=== PATIENT | female | born 1980 | race Caucasian/White ===

== ENCOUNTER 2018-11-22 23:33 | Emergency (ER) | payer MEDICAID ==
[~2018-11-22] VITALS: Wt 76.7 kg
[~2018-11-22 23:33] MED LIST: PRENATAL VIT
--- NOTE | 2018-11-23 00:17 | ERD ---
ER Documentation Chief Complaint Chief Complaint AP/ VOMITING X'S 2 DAYS HPI This 38-year-old female presents for evaluation of abdominal pain and vomiting for the last 2 days. Today she states that she felt increased pain, and had an episode of emesis and subsequently had a syncopal episode, she sustained a laceration over her right upper inner lip, she denies neck pain, she she denies being intoxicated. She denies vaginal discharge, she has not had any loose dentition. ROS All systems reviewed and are negative except as per history of present illness. Medications Home Meds Discontinued Reported Medications Vit 05/17/10 Allergies Allergies: Coded Allergies: No Known Allergy (Verified , 05/17/10) PMhx/Soc History of Surgery: No Anesthesia Reaction: No Hx Neurological Disorder: No Hx Respiratory Disorders: No Hx Cardiac Disorders: No Hx Psychiatric Problems: No Hx Miscellaneous Medical Probl: No Hx Alcohol Use: No Hx Substance Use: No Hx Tobacco Use: No Physical Exam Vitals Vital Signs Date Temp Pulse Resp B/P (MAP) Pulse Ox O2 O2 Flow FiO2 Time Delivery Rate 11/23/18 63 16 120/97 100 Room Air 02:00 (105) 11/22/18 97.3 74 18 150/86 99 23:34 (107) Physical Exam Const: No acute distress Head: Hematoma over the right forehead Eyes: Normal Conjunctiva ENT: Normal External Ears, Nose and Mouth, no nasal septal hematoma. There is small superficial abrasion over the right upper side of the mouth, in the inner lip, there is 2 cm transverse laceration, that is not through and through. Neck: Full range of motion. No meningismus. Resp: Clear to auscultation bilaterally Cardio: Regular rate and rhythm, no murmurs Abd: Soft, non tender, non distended. Normal bowel sounds Skin: No petechiae or rashes Back: No midline or flank tenderness Ext: No cyanosis, or edema Neur: Awake and alert Psych: Normal Mood and Affect Result Diagram: 11/23/180 11/23/180 Results 24 hrs Laboratory Tests Test 11/23/18 00:20 11/23/18 00:53 White Blood Count 9.7 10^3/ul Red Blood Count 4.04 10^6/ul Hemoglobin 11.9 g/dl Hematocrit 35.8 % Mean Corpuscular Volume 88.6 fl Mean Corpuscular Hemoglobin 29.5 pg Mean Corpuscular Hemoglobin Concent 33.2 g/dl Red Cell Distribution Width 12.9 % Platelet Count 263 10^3/UL Mean Platelet Volume 10.5 fl Immature Granulocytes % 0.300 % Neutrophils % 76.6 % Lymphocytes % 15.8 % Monocytes % 5.4 % Eosinophils % 1.6 % Basophils % 0.3 % Nucleated Red Blood Cells % 0.0 /100WBC Immature Granulocytes # 0.030 10^3/ul Neutrophils # 7.4 10^3/ul Lymphocytes # 1.5 10^3/ul Monocytes # 0.5 10^3/ul Eosinophils # 0.2 10^3/ul Basophils # 0.0 10^3/ul Nucleated Red Blood Cells # 0.0 10^3/ul Prothrombin Time 11.8 Sec Prothrombin Time Ratio 0.9 INR International Normalized Ratio 0.86 Urine Color COLORLESS Urine Clarity CLEAR Urine pH 7.0 Urine Specific [place] 1.004 Urine Ketones NEGATIVE mg/dL Urine Nitrite NEGATIVE mg/dL Urine Bilirubin NEGATIVE mg/dL Urine Urobilinogen NEGATIVE mg/dL Urine Leukocyte Esterase NEGATIVE Janae/ul Urine Hemoglobin NEGATIVE mg/dL Urine Glucose NEGATIVE mg/dL Urine Total Protein NEGATIVE mg/dl Sodium Level 142 mmol/L Potassium Level 3.9 mmol/L Chloride Level 105 mmol/L Carbon Dioxide Level 26 mmol/L Anion Gap 11 Blood Urea Nitrogen 23 mg/dl Creatinine 0.59 mg/dl Est Glomerular Filtrat Rate mL/min > 60 mL/min Glucose Level 116 mg/dl Calcium Level 9.1 mg/dl Total Bilirubin 0.0 mg/dl Direct Bilirubin 0.00 mg/dl Indirect Bilirubin 0.0 mg/dl Aspartate Amino Transf (AST/SGOT) 43 IU/L Alanine Aminotransferase (ALT/SGPT) 69 IU/L Alkaline Phosphatase 82 IU/L Troponin I < 0.012 ng/ml Total Protein 7.4 g/dl Albumin 4.3 g/dl Globulin 3.10 g/dl Albumin/Globulin Ratio 1.38 Lipase 66 U/L POC Beta HCG, Qualitative NEGATIVE Current Medications Medications Dose Sig/Matthew Start Time Status Last (Trade) Ordered Route PRN Stop Time Admin Dose Reason Admin Diphtheria/ 0.5 ml ONCE ONCE 11/23/18 DC 11/23/18 Tetanus/Acell IM* 00:30 11/23/18 01:58 Pertussis 00:31 (Adacel) Lidocaine 5 ml ONCE ONCE 11/23/18 DC (Xylocaine INFIL 00:30 11/23/18 1% (Mpf)) 00:31 Procedures/MDM This is a 38-year-old female presents for evaluation of syncope and abdominal pain. #Syncope. I suspect her syncopal episode was most likely vasovagal, this is in the setting of having abdominal pain for the last 2 days, her EKG showed normal sinus rhythm, with no evidence of arrhythmia, otherwise she has no cardiac history. Because she fell on her head and had evidence of trauma, CT brain was negative, but did note left nasal fracture, she is nexus negative, no indication for CT imaging of the neck. She has a small laceration of the inner lip, that does not appear to be through and through. She has no evidence of facial fractures, and no loose dentition. #Abdominal pain. She has no peritoneal signs on abdominal exam, labs were overall unremarkable, and CT abdomen pelvis was negative, at this point does not appear to be an emergent or surgical cause for abdominal pain, and she is stable for discharge. EKG: Rate/Rhythm: Normal Sinus Rhythm QRS, ST, T-waves: Q waves noted inferiorly. No changes consistent w/ acute ischemia Impression: No evidence of ischemia or arrhythmia Departure Diagnosis: Primary Impression: Syncope Syncope type: vasovagal syncope Qualified Codes: R55 - Syncope and collapse Additional Impression: Abdominal pain Abdominal location: lower abdomen, unspecified Qualified Codes: R10.30 - Lower abdominal pain, unspecified Condition: Stable NATHALY HERNDON MD Nov 23, 2018 00:17
[2018-11-23] MEDS ORDERED: LIDOCAINE 1% (MPF) 5 ML VIAL INFIL ONE (00:30)
[2018-11-23] MEDS ORDERED: DIPHTH/TET/ACEL PERTUSS (ADULT) 0.5 ML VIAL IM* ONE (00:30)
[2018-11-23 02:36] VITALS: BP 106/92; PULSE 69; RESP 13
== END 2018-11-23 02:38 | disposition home or self-care (01) ==
LOC: FTE 23:33 → E/R 11-23 02:38
DX: R55 Syncope and collapse (principal); R10.30 Lower abdominal pain, unspecified; S01.511A Laceration without foreign body of lip, initial encounter; W18.39XA Other fall on same level, initial encounter; Z23 Encounter for immunization
CPT/HCPCS: 36415; 70450; 74176; 80053; 81003; 81025; 83690; 84484; 85025; 85610; 90471; 90715; 93005; Z7502; Z7610